=== PATIENT | female | born 1980 | race Caucasian/White ===

== ENCOUNTER 2017-11-30 22:18 | Emergency (ER) | payer SELFPAY ==
[~2017-11-30] VITALS: Ht 170.2 cm; Wt 122.0 kg
[2017-12-01 00:08] LABS: BASOPHILS % 0.5 % (0.0-2.0); EOSINOPHILS % 1.3 % (0.0-5.0); HEMATOCRIT. 40.9 % (36.0-48.0); HEMOGLOBIN. 13.5 g/dL (12.0-16.0); LYMPHOCYTES % 20.2 % (20.0-50.0); MEAN CORPUSCULAR HEMOGLOBIN 27.3 pg (28.0-32.0); MEAN CORPUSCULAR VOLUME 82.9 fL (81.0-99.0); MEAN PLATELET VOLUME 7.8 fl (7.4-10.4); MONOCYTES % 5.1 % (2.0-8.0); NEUTROPHILS % 72.9 % (40.0-76.0); PLATELET 296 x1000/uL (130-400); RED BLOOD CELL COUNT 4.94 mill/uL (4.2-5.4); RED CELL DISTRIBUTION WIDTH 13.7 % (11.6-14.6)
[2017-12-01 00:16] LABS: D-DIMER 0.66 mg/L FEU (<0.50); PROTHROMBIN TIME 10.5 sec (9.4-11.6)
[2017-12-01 00:33] LABS: CHLORIDE 105 mEq/L (98-107)
[2017-12-01 01:03] LABS: T4 FREE 1.08 ng/dL (0.76-1.46)
[2017-12-01 02:12] LABS: CARBON DIOXIDE 23 mEq/L (21-32); TROPONIN I < 0.02 ng/mL (0.00-0.04)
[2017-12-01] MEDS ORDERED: ACETAMINOPHEN 325MG TABLET PO ONE (02:15)
[2017-12-01] MEDS ORDERED: IOHEXOL-350 100 ML BOTTLE ONE (03:22)
[2017-12-01 06:30] VITALS: BP 116/70
== END 2017-12-01 06:40 | disposition home or self-care (01) ==
LOC: ER 22:18
DX: R06.02 Shortness of breath (principal); E03.9 Hypothyroidism, unspecified
CPT/HCPCS: 36415; 71045; 71275; 80053; 83880; 84439; 84443; 84484; 85025; 85379; 85610; 93005; 99285; Q9967

== ENCOUNTER 2018-01-03 00:01 | Emergency (ER) | payer SELFPAY ==
[~2018-01-03] VITALS: Ht 170.2 cm; Wt 126.9 kg
[2018-01-03 11:56] VITALS: BP 134/84
== END 2018-01-03 12:17 | disposition home or self-care (01) ==
LOC: ER 00:01
DX: J40 Bronchitis, not specified as acute or chronic (principal); B34.9 Viral infection, unspecified
CPT/HCPCS: 99283; Z7610

== ENCOUNTER 2019-10-18 00:41 | Emergency (ER) | payer SELFPAY ==
[~2019-10-18] VITALS: Ht 172.7 cm; Wt 119.0 kg
[2019-10-18 01:39] LABS: CHLORIDE 104 mEq/L (98-107)
[2019-10-18 01:41] LABS: BASOPHILS % 0.5 % (0.0-2.0); HEMOGLOBIN. 13.5 g/dL (12.0-16.0); LYMPHOCYTES % 30.2 % (20.0-50.0); MEAN CORPUSCULAR HEMOGLOBIN 26.4 pg (28.0-32.0); MEAN CORPUSCULAR VOLUME 78.1 fL (81.0-99.0); MEAN PLATELET VOLUME 8.1 fl (7.4-10.4); MONOCYTES % 6.1 % (2.0-8.0); NEUTROPHILS % 62.2 % (40.0-76.0); PLATELET 222 x1000/uL (130-400); RED BLOOD CELL COUNT 5.12 mill/uL (4.2-5.4)
[2019-10-18 01:48] LABS: T4 FREE 1.07 ng/dL (0.76-1.46)
[2019-10-18] MEDS ORDERED: IOHEXOL-350 100 ML BOTTLE ONE (03:52)
[2019-10-18 06:18] VITALS: BP 115/73
== END 2019-10-18 06:20 | disposition home or self-care (01) ==
LOC: ER 00:41
DX: E03.9 Hypothyroidism, unspecified (principal); R00.0 Tachycardia, unspecified; Z90.49 Acquired absence of other specified parts of digestive tract
CPT/HCPCS: 36415; 71045; 71275; 80053; 81025; 83880; 84439; 84443; 84484; 85025; 85379; 93005; 99284; Q9967; Z7610

== ENCOUNTER 2020-09-18 23:59 | Emergency (ER) | payer MEDICAID ==
[~2020-09-18] VITALS: Ht 170.2 cm; Wt 75.0 kg
[2020-09-19] MEDS ORDERED: KETOROLAC 30MG/ML VIAL IM ONE (01:00)
[2020-09-19 01:37] VITALS: BP 141/102
== END 2020-09-19 02:14 | disposition home or self-care (01) ==
LOC: ER 23:59
DX: G89.29 Other chronic pain (principal); M79.621 Pain in right upper arm; M79.604 Pain in right leg; R03.0 Elevated blood-pressure reading, without diagnosis of hypertension
CPT/HCPCS: 96372; 99283; J1885

== ENCOUNTER 2020-10-12 21:06 | Emergency (ER) | payer MEDICAID ==
[~2020-10-12] VITALS: Ht 172.7 cm; Wt 110.7 kg
[2020-10-12] MEDS ORDERED: IBUPROFEN 600MG TABLET PO ONE (22:00)
[2020-10-12 22:30] VITALS: BP 118/96
== END 2020-10-12 22:45 | disposition home or self-care (01) ==
LOC: ER 21:06
DX: U07.1 COVID-19 (principal); R51.9 Headache, unspecified; R20.0 Anesthesia of skin; E11.9 Type 2 diabetes mellitus without complications
CPT/HCPCS: 82962; 99282

== ENCOUNTER 2024-01-23 09:42 | Emergency (ER) | payer MEDICAID, OTHER ==
[~2024-01-23] VITALS: Ht 170.2 cm; Wt 100.0 kg
[2024-01-23 09:57] VITALS: O2SAT 99
[2024-01-23] MEDS: KETOROLAC 60MG/2ML VIAL IM STA (10:45)
[2024-01-23 11:39] LABS: BASOPHILS % 0.7 % (0.0-2.0); DIFFERENTIAL COMMENT 0; HEMATOCRIT. 36.2 % (36.0-48.0); HEMOGLOBIN. 11.6 g/dL (12.0-16.0); LYMPHOCYTES % 25.4 % (20.0-50.0); MEAN CORPUSCULAR HEMOGLOBIN 23.1 pg (28.0-32.0); MEAN CORPUSCULAR VOLUME 72.4 fL (81.0-99.0); MEAN PLATELET VOLUME 7.5 fl (7.4-10.4); MONOCYTES % 5.6 % (2.0-8.0); NEUTROPHILS % 67.3 % (40.0-76.0); PLATELET 314 x1000/uL (130-400); RED CELL DISTRIBUTION WIDTH 17.2 % (11.6-14.6); WHITE BLOOD COUNT 7.9 x1000/uL (4.5-11.0)
[2024-01-23 12:07] LABS: ALANINE AMINOTRANSFERASE 9 IU/L (10-49); ALBUMIN 4.5 g/dL (3.2-4.8); ASPARTATE AMINOTRANSFERASE 15 IU/L (<34); BILIRUBIN TOTAL 0.4 mg/dL (0.1-1.0); CALCIUM 8.4 mg/dL (8.7-10.4); CARBON DIOXIDE 24 mEq/L (21-32); CHLORIDE 104 mEq/L (98-107); CREATININE 0.7 mg/dL (0.6-1.0); GLUCOSE 255 mg/dL (70-105); POTASSIUM 4.3 mEq/L (3.5-5.1); PROTEIN TOTAL 7.9 g/dL (6.0-8.3); SODIUM 135 mEq/L (136-145); UREA NITROGEN BLOOD 10 mg/dL (9-23)
[2024-01-23] MEDS ORDERED: CLIN-194 MT (12:18)
[2024-01-23] MEDS ORDERED: NAPR-681 PO (12:18)
[2024-01-23] MEDS ORDERED: METF-414 PO (12:18)
[2024-01-23 12:43] VITALS: BP 149/98; PULSE 97; RESP 18; TEMP 98
== END 2024-01-23 12:46 | disposition home or self-care (01) ==
LOC: ER 09:42
DX: R59.1 Generalized enlarged lymph nodes (principal); Q18.1 Preauricular sinus and cyst; E11.65 Type 2 diabetes mellitus with hyperglycemia; K02.9 Dental caries, unspecified; Z90.49 Acquired absence of other specified parts of digestive tract
CPT/HCPCS: 99283; 80053; 81025; 82962; 85025; 36415; 96372; J1885